=== PATIENT | female | born 1955 | race Caucasian/White ===

== ENCOUNTER 2024-06-02 08:47 | Outpatient (RCR) | payer MEDICARE, OTHER, SELFPAY | END 2024-06-02 23:59 | disposition home or self-care (01) | LOC: RPT 08:47 | PROVIDERS: ATTENDING PHYSICIAN Nurse Practitioner Family | DX: I89.0 Lymphedema, not elsewhere classified (principal); Z73.6 Limitation of activities due to disability; R26.2 Difficulty in walking, not elsewhere classified; M17.11 Unilateral primary osteoarthritis, right knee | CPT/HCPCS: 97163; 97530 ==

== ENCOUNTER 2024-07-28 07:50 | Outpatient (RCR) | payer MEDICARE, OTHER, SELFPAY | END 2024-07-28 12:30 | disposition home or self-care (01) | LOC: RPT 07:50 | PROVIDERS: ATTENDING PHYSICIAN Nurse Practitioner Family | DX: I89.0 Lymphedema, not elsewhere classified (principal); Z73.6 Limitation of activities due to disability; R26.2 Difficulty in walking, not elsewhere classified; M17.11 Unilateral primary osteoarthritis, right knee | CPT/HCPCS: 97140; 97530 ==